=== PATIENT | female | born 1995 | race Caucasian/White ===

== ENCOUNTER 2020-09-17 22:06 | Emergency (ER) | payer OTHER ==
[~2020-09-17] VITALS: Ht 157.5 cm; Wt 72.1 kg
[2020-09-17 22:11] VITALS: BP 118/74
--- NOTE | 2020-09-17 22:20 | NUR ---
PATIENT PRESENTS TO ED WITH C/O THROAT PAIN . PT STATESI INHALED A MIX OF CLEANINGFLUIDS INCLUDING BLEACH , 3 DAYS AGO . DENIES N/V/D; SKIN IS PINK/WARM/DRY; AAOX4 WITH EVEN AND STEADY GAIT; LUNGS CLEAR BL; HR EVEN AND REGULAR; PT DENIES ANY FEVER, CP, SOB, OR COUGH AT THIS TIME; PATIENT STATES PAIN OF 5/10 AT THIS TIME; VSS; PATIENT POSITIONED FOR COMFORT; HOB ELEVATED; BEDRAILS UP X2; BED DOWN. ER MD MADE AWARE OF PT STATUS.
--- NOTE | 2020-09-17 22:25 | NUR ---
DR. EDWARDS AT BEDSIDE FOR EXAM
[2020-09-17] MEDS ORDERED: LIDOCAINE VISCOUS 2% 20 ML UDC PO ONE (22:30)
[2020-09-17] MEDS ORDERED: DEXAMETHASONE 4 MG/ML VIAL PO ONE (22:30)
--- NOTE | 2020-09-17 22:40 | NUR ---
TO RADIOLOGY VIA W/C
--- NOTE | 2020-09-17 22:45 | NUR ---
PT RETURNED FROM XRAY VIA W/C
[2020-09-17 23:18] LABS: BASOPHILS # (AUTO) 0.1 K/uL (0.00-0.22); BASOPHILS % (AUTO) 0.8 % (0.0-2.0); EOSINOPHILS # (AUTO) 0.1 K/uL (0-0.4); EOSINOPHILS % (AUTO) 1.4 % (0.0-4.0); HEMATOCRIT 35.4 % (36-48); HEMOGLOBIN 11.8 g/dL (12.0-16.0); LYMPHOCYTES # (AUTO) 2.4 K/uL (2.5-16.5); LYMPHOCYTES % (AUTO) 27.2 % (20.5-51.1); MEAN CORPUSCULAR HEMOGLOBIN 28 pg (27-31); MEAN CORPUSCULAR HGB CONC 33 g/dL (33-37); MONOCYTES # (AUTO) 0.6 K/uL (0.8-1.0); MONOCYTES % (AUTO) 7.1 % (1.7-9.3); NEUTROPHILS # (AUTO) 5.6 K/uL (1.8-7.7); NEUTROPHILS % (AUTO) 63.5 % (42.2-75.2); PLATELET COUNT (AUTO) 317 K/uL (140-450); RED BLOOD CELL COUNT(AUTO) 4.26 MIL/uL (4.20-5.40); WHITE BLOOD COUNT (AUTO) 8.8 K/uL (4.8-10.8)
--- NOTE | 2020-09-17 23:30 | NUR ---
CONSENT SIGNED FOR CT WITH CONTRAST. INFLUENZA A & B SWAB OBTAINED AND SENT TO LAB
[2020-09-17 23:33] LABS: ANION GAP 15.7 (8-16); CARBON DIOXIDE 24.8 mmol/L (21-32); CREATININE 0.8 mg/dL (0.6-1.3); POTASSIUM 3.5 mmol/L (3.5-5.1)
--- NOTE | 2020-09-18 00:04 | NUR ---
TO CT VIA W/C
--- NOTE | 2020-09-18 00:18 | NUR ---
RETURNED FROM CT. LAB CALLED, NOTIFIED, INFLUENZA A & B = POSITIVE FOR BOTH
[2020-09-18 01:44] VITALS: BP 118/74
--- NOTE | 2020-09-18 01:45 | NUR ---
Patient discharged with v/s stable. Written and verbal after care instructions given and explained. Patient alert, oriented and verbalized understanding of instructions. Ambulatory with steady gait. All questions addressed prior to discharge. ID band removed. Patient advised to follow up with PMD. Rx of PROMETHAZINE HCL, CEPACOL, MOTRIN, TAMIFLU given. Patient educated on indication of medication including possible reaction and side effects. Opportunity to ask questions provided and answered.
== END 2020-09-18 01:44 | disposition home or self-care (01) ==
LOC: MED 22:06
DX: L24.5 Irritant contact dermatitis due to other chemical products (principal); R07.0 Pain in throat
CPT/HCPCS: 36415; 70360; 70491; 80048; 81025; 85025; 87804; 99285; J1100; Q9967; U0003